=== PATIENT | male | born 1980 | race Caucasian/White ===

== ENCOUNTER 2017-05-13 14:09 | Emergency (ER) | payer OTHER ==
[2017-05-13] MEDS ORDERED: KETOROLAC 30 MG/ML VIAL IM ONE (14:25)
--- NOTE | 2017-05-13 14:31 | Emergency Department Record ---
History of Present Illness - General Chief Complaint: Back Pain/Injury Stated Complaint: BACK INJURY Time Seen by Provider: 05/13/17 14:22 Source: Patient Mode of Arrival: Ambulatory Limitations: No limitations - History of Present Illness Initial Comments: The patient is here due to injuring his back at home yesterday. He was lifting and stacking wood when he lifted and turned and felt a "POP" and pain in the R lower back. The pain is sharp and stabbing and MUCH worse with any bending or twisting or movement. When he is still and not moving the pain is MUCH improved. There is no radiation of the pain down the legs and no reported leg numbness, weakness, or any bowel or bladder incontinence. The patient is walking normally and did drive here to the ER. He states he has no chronic back issues. MD Complaint: Back injury Onset/Timin -: Days(s) Similar Symptoms Previously: No Place: Home Radiation: None Severity scale (1-10): 8 Quality: Aching, Sharp Consistency: Constant Improves With: None Worsens With: None Context: While lifting Associated Symptoms: Denies other symptoms - Related Data Home Medications Medication Instructions Recorded Confirmed Last Taken Omeprazole 20 mg PO DAILY 05/13/17 05/13/17 Unknown Previous Rx's Medication Instructions Recorded Naproxen [Naprosyn] 500 mg PO BID #14 tablet. 05/13/17 Orphenadrine Citrate [Norflex] 100 mg PO Q12H PRN #15 tab 05/13/17 Allergies Allergy/AdvReac Type Severity Reaction Status Date / Time No Known Drug Allergies Allergy Verified 05/13/17 14:18 Travel Screening - Travel/Exposure Within Last 30 Days Have you traveled within the last 30 days?: No Review of Systems Constitutional: Denies: Chills, Fever Eyes: Denies: Eye discharge ENT: Denies: Congestion, Other Respiratory: Denies: Cough, Dyspnea Past Medical History - SOCIAL HISTORY Smoking Status: Former smoker Alcohol Use: None Drug Use: None - RESPIRATORY Hx Respiratory Disorders: No - CARDIOVASCULAR Hx Cardio Disorders: No - NEURO Hx Neuro Disorders: No - GI Hx GI Disorders: Yes Hx Reflux: Yes - Hx Genitourinary Disorders: No - ENDOCRINE Hx Endocrine Disorders: No - MUSCULOSKELETAL Hx Musculoskeletal Disorders: No - PSYCH Hx Psych Problems: No - HEMATOLOGY/ONCOLOGY Hx Hematology/Oncology Disorders: No Family Medical History Any Significant Family History?: No Physical Exam - General General Appearance: Alert, Oriented x3, Cooperative, No acute distress - Head Head exam: Atraumatic, Normocephalic, Normal inspection - Eye Eye exam: Normal appearance, PERRL - Neck Neck exam: Normal inspection, Full ROM. negative: Tenderness - Respiratory Respiratory exam: Normal lung sounds bilaterally. negative: Respiratory distress - Cardiovascular Cardiovascular Exam: Regular rate, Normal rhythm, Normal heart sounds - GI/Abdominal GI/Abdominal exam: Soft, Normal bowel sounds. negative: Tenderness - Extremities Extremities exam: Normal inspection, Full ROM, Normal capillary refill. negative: Tenderness - Back Back exam: Reports: Normal inspection, Muscle spasm (Mild R lower lumbar area.) , Paraspinal tenderness (R lower lumbar area.). Denies: Vertebral tenderness - Neurological Neurological exam: Alert, Normal gait, Oriented X3, Reflexes normal, Other (Neg SLR bilaterally.). negative: Abnormal gait, Motor sensory deficit Course Vital Signs 05/13/17 14:12 Temperature 97.6 F Pulse Rate 81 Respiratory 20 Rate Blood Pressure 143/92 Pulse Ox 94 L - Reevaluation(s) Reevaluation #1: The patient is resting comfortably at this time. He denies any new issues and states the pain is very mild at this time. 05/13/17 14:44 Reevaluation #2: The patient is doing better. The pain is much improved and he is ready for home. 05/13/17 15:02 Disposition Disposition: Discharge Clinical Impression: Lumbar strain Qualifiers: Encounter type: initial encounter Qualified Code(s): S39.012A - Strain of muscle, fascia and tendon of lower back, initial encounter Disposition: Home, Self-Care Condition: (2) Stable Instructions: Low Back Strain (ED) Additional Instructions: Please rest for 2-3 days and take the next 2 days off work. Use Naprosyn and Norflex for pain. Please see your PCP if not better in 3 days. Return to the ER for any increased pain, leg numbness, weakness or any bowel or bladder issues. Prescriptions: Naproxen [Naprosyn] 500 mg PO BID #14 tablet. Orphenadrine Citrate [Norflex] 100 mg PO Q12H PRN #15 tab PRN Reason: Analgesia Forms: Patient Portal Access Time of Disposition: 15:05 Quality - Quality Measures Quality Measures: N/A - Blood Pressure Screening View Details: Yes Does Patient Have Any of the Following: No Blood Pressure Classification: Pre-Hypertensive BP Reading Systolic Measurement: 145 Diastolic Measurement: 88 Screening for High Blood Pressure: < Pre-Hypertensive BP, F/U Documented > [ [id number]] Pre-Hypertensive Follow-up Interventions: Referral to alternative/primary care provider.
== END 2017-05-13 15:11 | disposition home or self-care (01) ==
LOC: ER 14:09
DX: S39.012A Strain of muscle, fascia and tendon of lower back, initial encounter (principal); X50.0XXA Overexertion from strenuous movement or load, initial encounter; Y93.H9 Activity, other involving exterior property and land maintenance, building and construction; Y92.007 Garden or yard of unspecified non-institutional (private) residence as the place of occurrence of the external cause
CPT/HCPCS: 99283 ×2; 96372; J1885